=== PATIENT | male | born 1995 | race Caucasian/White ===

== ENCOUNTER 2018-05-13 18:18 | Emergency (ER) | payer MEDICAID ==
[~2018-05-13] VITALS: Ht 142.2 cm; Wt 45.5 kg
[2018-05-13 18:24] VITALS: Ht 142.2 cm; Wt 45.5 kg
[2018-05-13] MEDS ORDERED: DILANTIN100 MG PO (18:25)
[2018-05-13] MEDS ORDERED: RISPERDAL1 MG PO (18:25)
[2018-05-13 19:13] LABS: BASOPHILS 0.2 % (0-2); EOSINOPHILS 0.2 % (0-7); HEMATOCRIT 36.1 % (42.0-54.0); HEMOGLOBIN 12.8 g/dL (13.5-17.5); IMMATURE GRANULOCYTES 0.3 % (0-5); LYMPHOCYTES 15.5 % (15-50); MCH 35.8 pg (26.0-34.0); MCHC 35.5 g/dL (31.0-37.0); MCV 100.8 fL (80.0-100.0); MEAN PLATELET VOLUME 9.4 fL (7.4-10.4); MONOCYTES 6.8 % (2-11); PLATELET COUNT 186 10x3/uL (130-400); RBC 3.58 10x6/uL (4.20-6.10); WBC 6.1 10x3/uL (4.8-10.8)
[2018-05-13] MEDS ORDERED: ATIVAN1 MG PO (19:23)
[2018-05-13 19:34] LABS: ALBUMIN 3.3 g/dL (3.4-5.0); ALKALINE PHOSPHATASE 58 U/L (46-116); ALT (SGPT) 22 U/L (10-68); BILIRUBIN - TOTAL 0.46 mg/dL (0.2-1.3); CALC OSMOLALITY 280 mosm/kg (275-300); CALCIUM 8.2 mg/dL (8.5-10.1); CARBON DIOXIDE 30.6 mmol/L (21.0-32.0); CHLORIDE - SERUM 105 mmol/L (98-107); CREATININE - SERUM 0.9 mg/dL (0.6-1.3); GLUCOSE 110 mg/dL (74-106); POTASSIUM - SERUM 4.2 mmol/L (3.5-5.1); PROTEIN - SERUM 6.5 g/dL (6.4-8.2); SODIUM 140 mmol/L (136-145); UREA NITROGEN 14 mg/dL (7-18); eGFR NON AFRICAN AMERICAN > 90 mL/min (90-120)
[2018-05-13 19:42] LABS: PHENYTOIN (DILANTIN) 0.8 ug/mL (10.0-20.0); THYROID STIMULATING HORMONE 0.46 uIU/mL (0.36-3.74)
[2018-05-13 20:54] VITALS: BP 100/54
== END 2018-05-13 20:55 | disposition home or self-care (01) ==
LOC: D.ER 18:18
PROVIDERS: Family Medicine
DX: Q90.9 Down syndrome, unspecified (principal); G40.909 Epilepsy, unspecified, not intractable, without status epilepticus; T42.0X5A Adverse effect of hydantoin derivatives, initial encounter; Y92.019 Unspecified place in single-family (private) house as the place of occurrence of the external cause